=== PATIENT | male | born 1985 | race Caucasian/White ===

== ENCOUNTER 2025-03-15 05:24 | Emergency (ER) | payer MEDICAID, SELFPAY ==
[2025-03-15 05:26] VITALS: BMI 34.4
[2025-03-15 05:33] VITALS: BP 131/78; PULSE 114; RESP 18; TEMP 36.8; O2SAT 96
--- NOTE | 2025-03-15 05:38 | XR_ITS ---
EXAMINATION: PA lateral chest 2 views TECHNIQUE: Upright PA lateral chest 2 views Date and time: March 15, 2025, 0536 hours INDICATIONS: Coughing shortness of breath 10 days. FINDINGS: Normal heart size Lungs are clear. Osseous structures are intact IMPRESSION: No active disease
--- NOTE | 2025-03-15 05:38 | PD.EDRME ---
Rapid Medical Screening Exam RME Arrival date/time: 03/15/25 05:24 39M with no significant PMH presents to ED with 10 days of cough and SOB. Chief Complaint: Flu Like Symptoms Vital signs: Vital Signs Temperature 98.3 F 03/15/25 05:33 Pulse Rate 114 H 03/15/25 05:33 Respiratory Rate 18 03/15/25 05:33 Blood Pressure 131/78 H 03/15/25 05:33 Pulse Oximetry (%) 96 03/15/25 05:33 Oxygen Delivery Method Room Air 03/15/25 05:33 Exam: Rales in both lungs. Clinical Impression: CAP vs URI vs PE vs CHF
--- NOTE | 2025-03-15 06:50 | EDNOTE_ITS ---
Upper Respiratory Inf. RME/HPI General Chief Complaint: Flu Like Symptoms Stated Complaint: COUGH SOB Time Seen by Provider: 03/15/25 05:41 Arrival date/time: 03/15/25 05:24 Limitations: no limitations RME / HPI RME / HPI Narrative: 03/15/25 05:24 39M with no significant PMH presents to ED with 10 days of cough and SOB. Exam: Rales in both lungs. Impression: CAP vs URI vs PE vs CHF Related Data Previous Rx's ?Medication ?Instructions ?Recorded HYDROCODONE BIT/ACETAMINOPHEN 1 tab PO Q4-6HR PRN pain #14 tabs 04/30/13 (Vicodin 5/300) ibuprofen 600 mg tablet 600 mg PO [id number] PRN pain # 30 tabs 04/30/13 ibuprofen 600 mg tablet 600 mg PO TID #28 tabs 06/19 Ventolin HFA 90 mcg/actuation 2 puff inhalation Q6H NJ N 03/15/25 aerosol inhaler (albuterol sulfate) shortness of breat h or wheezing #18 grams azithromycin 500 mg tablet See Rx Instructions PO .COM PLEX #6 03/15/25 tabs benzonatate 100 mg capsule 100 mg PO TID #14 caps 02/26 11/20 prednisone 10 mg tablet 30 mg (3 x 10 mg) PO BID 3 d ays 03/15/25 #18 tabs Allergies Allergy/AdvReac Type Severity Reaction Status Date / Time No Known Allergies Allergy Verified 03/15/25 05:29 Review of Systems Review of Systems Systems Reviewed: All systems reviewed, normal except as documented Constitutional Constitutional: Reports system reviewed and no additional complaints, except as documented, Denies fever(s) and Denies headache(s) Eyes Eyes: Reports system reviewed and no additional complaints, except as documented and Denies blurry vision ENT Ears, Nose, Mouth, and Throat: Reports system reviewed and no additional complaints, except as documented, Denies headache(s), Denies nasal congestion and Denies nasal discharge Cardiovascular Cardiovascular: Reports system reviewed and no additional complaints, except as documented, Denies chest pain and Denies dyspnea Respiratory Respiratory: Reports system reviewed and no additional complaints, except as documented, Reports chest congestion, Reports cough and Denies dyspnea Gastrointestinal Gastrointestinal: Reports system reviewed and no additional complaints, except as documented and Denies abdominal pain Integumentary/Breasts Skin/Breast: Reports system reviewed and no additional complaints, except as documented and Denies rash Neurologic Neurologic: Reports system reviewed and no additional complaints, except as documented, Reports as per HPI and Denies headache(s) Past Medical History Social History SMOKING STATUS: Never smoker ED Exam General Limitations: Present no limitations General appearance: Present alert and in no apparent distress Head Head exam: Present atraumatic, normocephalic and normal inspection Eye Eye exam: Present normal appearance, PERRL and EOMI; Absent conjunctival injection ENT ENT exam: Present normal exam, normal oropharynx and mucous membranes moist Neck Neck exam: Present normal inspection, full ROM and trachea midline Chest Chest inspection: Present normal inspection and symmetric chest wall rise Respiratory Respiratory exam: Present other (Coarse breath sounds/rhonchi bilaterally); Absent respiratory distress, wheezes, stridor, accessory muscle use or prolonged expiratory phase Cardiovascular Cardiovascular exam: Present regular rate, normal rhythm and normal heart sounds Abdominal Exam Abdominal exam: Present soft and normal bowel sounds Extremities Exam Extremities exam: Present normal inspection and full ROM Back Exam Back exam: Present normal inspection and full ROM Neurological Exam Neurological exam: Present alert, oriented X3 and CN II-XII intact Psychiatric Psychiatric exam: Present normal affect and normal mood Skin Skin exam: Present warm, dry, intact and normal color Course Quality Measures none Orders Category Date Time Status XR chest 2V Stat Exams 03/15/25 05:38 Completed Vital Signs Vital signs: Vital Signs Temperature 98.3 F 03/15/25 05:33 Pulse Rate 114 H 03/15/25 05:33 Respiratory Rate 18 03/15/25 05:33 Blood Pressure 131/78 H 03/15/25 05:33 Pulse Oximetry (%) 96 03/15/25 05:33 Oxygen Delivery Method Room Air 03/15/25 05:33 O2 saturation 96% room air within normal limits Upper Respiratory Infection MDM Narrative MDM Narrative:: 39-year-old male presents to the Emergency Department for complaints of cough, congestion and generalized bodyaches ongoing x 10 days patient reports no fever no night sweats. Patient course no chest pain Chest x-ray obtained no acute pneumonic of the traits noted Clinically patient is coughing and has coarse breath sounds bilaterally Patient will be given a course of medication explained to the patient after his treatment of his symptoms persist he needs to have outpatient coccidiomycosis testing Patient discharged home in no distress to follow-up with primary care doctor in the next 24 to 48 hours and for any worsening symptoms to return to the ER immediately Patient data External records reviewed:: [facility] previous records Clinical information provided by:: patient Social determinants that could affect healthcare access:: none Patient has the following chronic illnesses:: None How is presenting disease/condition affected by chronic disease/condition?: no chronic disease Evaluation data The following diagnostics were reviewed and interpreted by me:: radiology exam(s) Lab and/or radiology exams considered but not ordered:: Radiology obtained Interpretation Summary: Reviewed by me Medications / Prescriptions Medications or Prescriptions considered but not ordered:: Given Medication administrations:: Given Consultations Consultation(s) initiated? (list below): No Diagnosis Upper Respiratory Differential Diagnosis: upper respiratory infection, viral infection, bronchitis and influenza Most likely diagnosis given after review of the tests above:: URI, cough Admission Indicated Admission indicated?: not indicated Admission Request Was there a request for admission?: No Disposition Plan Disposition Plan: Discharge Discharge Attestation Discharge Attestation: The patient and all family members were given an opportunity to ask questions and understood the discharge instructions. Discharge instructions specifically effects, indications for sooner follow up or return to the emergency department, and the expected course of current diagnosis. Patient condition: Stable Discharge Plan Plan Patient Disposition: HOME (Self Care) Discharge Disposition comment: Stable Prescriptions/Referrals Prescriptions/Med Rec: New prednisone 10 mg tablet 30 mg PO BID 3 Days Qty: 18 0RF benzonatate 100 mg capsule 100 mg PO TID Qty: 14 0RF albuterol sulfate [Ventolin HFA] 90 mcg/actuation HFA aerosol inhaler 2 puff inhalation Q6H PRN (Reason: shortness of breath or wheezing) Qty: 18 0RF azithromycin 500 mg tablet See Rx Instructions .ROUTE .COMPLEX Qty: 6 0RF Rx Instructions: take 500 mg today (day 1), then 250 mg for 4 days (days 2-5) No Action ibuprofen 600 MG tablet 600 mg PO [id number] PRN (Reason: pain) Qty: 30 0RF HYDROCODONE BIT/ACETAMINOPHEN (Vicodin 5/300) 1 TAB tablet 1 tab PO Q4-6HR PRN (Reason: pain) Qty: 14 0RF ibuprofen 600 MG tablet 600 mg PO TID Qty: 28 0RF Problem List Clinical Impression: Cough Patient/Caregiver Discharge Instructions Education Materials: ED Cough Chronic Uncertain Cause Adult Additional Instructions: Please follow up with your primary care doctor in the next 24-48hrs for any worsening symptoms return here immediately If your cough persist you should have outpatient coccidiomycosis testing Print Language: Kiswahili Stand Alone Forms: Umm Award Info., Work/School Release, Patient Portal Info Letter PA/PATIENT ACCOUNT REPRESENTATIVE Supervising Physician PA/PATIENT ACCOUNT REPRESENTATIVE Supervising Physician: Dr. Mars
== END 2025-03-15 07:00 | disposition home or self-care (01) ==
PROVIDERS: Emergency Provider Family Medicine; PCP Nurse Practitioner Family
DX: R05.9 Cough, unspecified (principal)
CPT/HCPCS: 71046; 99282